=== PATIENT | female | born 2000 | race African-American/Black ===

== ENCOUNTER 2023-06-21 02:07 | Emergency (ER) | payer BC, SELFPAY ==
[2023-06-21 02:16] VITALS: BP 132/94
[2023-06-21 02:58] LABS: % Basophils 0.8 % (0-2); % Eosinophils 5.2 % (0-6); % Immature Granulocytes 0.3 % (0-0.5); % Lymphocytes 28.8 % (20.5-51.1); % Monocytes 15.9 % (1.7-9.3); Absolute Basophils 0.1 10^3/uL (0-0.2); Absolute Eosinophils 0.3 10^3/uL (0-0.7); Absolute Lymphocytes 1.7 10^3/uL (1.2-3.4); Absolute Monocytes 0.9 10^3/uL (0.1-0.6); Absolute Neutrophils 2.9 10^3/uL (1.4-6.5); Hematocrit 38.5 % (37.0-47.0); Hemoglobin 12.8 g/dL (12.0-16.0); Mean Corp Hgb Conc. 33.2 g/dL (33.0-37.0); Mean Corpuscular Hgb 28.2 pg (27.0-31.0); Mean Corpuscular Volume 84.8 fL (81.0-99.0); Mean Platelet Volume 9.3 fL (7.4-10.4); Nucleated Red Blood Cells % 0 %; Platelet Count 249 10^3/uL (130-400); Red Blood Cell Count 4.54 10^6/uL (4.20-5.40); Red Cell Dist. Width 13.2 % (11.5-14.5); White Blood Cell Count 5.9 10^3/uL (4.8-10.8)
--- NOTE | 2023-06-21 03:12 | ED.GENMED ---
History of Present Illness
<PRO Quiroz - Last Filed: 06/22/23 17:53>
General
Chief Complaint: Abdominal Pain
Source: patient
Exam Limitations: none
Time Seen by Provider: 06/21/23 02:50
Travel History
Have you had any contact with someone who has COVID-19?: No
Do you have any symptoms of coronavirus? Fever > 100 degrees, chills, cough, shortness of breath, sore throat, loss of taste or smell, muscle aches, or headache?: No
History of Present Illness
History of Present Illness:
This is a 23 year old female that comes in with c/o left lower abd pain. States that she started with back and left sided abd pain. States that she took Tylenol 1000mg and the pain was not going away. States that she is also concerned that her IUD
is displaced. States that she went to bed and she was awakened with pain on the left side. States that the pain started at 7pm. States that she was nauseated. Denies any fever, chills, chest pain, SOB, vomiting, diarrhea, headache, dizziness,
urinary burning.
Past History
<PRO Quiroz - Last Filed: 06/22/23 17:53>
Past History
ED Past Medical History: None; Negative Asthma, HTN, Hypercholesterolemia or NIDDM
ED Past Surgical History: Orthopedic (Right ankle surgery)
Social History
Tobacco: Non-smoker
Alcohol: Occasional
Personal: Single
Living: alone
Review of Systems
<PRO Quiroz - Last Filed: 06/22/23 17:53>
Review of Systems
All Other Systems: ROS reviewed and negative except as documented in HPI and ROS
Constitutional: Reports no symptoms; Denies fever or chills
EENT: Reports no symptoms
Respiratory: Reports no symptoms; Denies cough or trouble breathing
Cardiac: Reports no symptoms; Denies chest pain
ABD/GI: Reports abdominal pain and nausea; Denies vomiting or diarrhea
: Reports no symptoms; Denies dysuria, frequency or urgency
Musculoskeletal: Reports no symptoms
Skin: Reports no symptoms
Neurological: Reports no symptoms; Denies dizzy or headache
Psychiatric: Reports no symptoms
Phy Exam
<PRO Quiroz - Last Filed: 06/22/23 17:53>
General Physical Exam
General Presentation: no apparent distress
General age: appears stated age
General Skin: warm and dry
General Habitus: normal
General Mental: alert
General Hydration: appears well hydrated
ENT Exam
ENT Exam: TM's normal, pharynx normal and neck supple
Eye Exam
Eye Exam: EOMI
Cardiovascular Exam
Cardiovascular Exam: regular rate/rhythm, no edema, no murmur and normal peripheral pulses
Pulmonary Exam
Pulmonary Exam: lungs clear, no respiratory distress, no rales, chest non tender, no crackles, no rhonchi, no wheezing and no cough
Gastrointestinal Exam
Gastrointestinal Exam: normal bowel sounds, soft, no organomegaly, no pulsatile mass, non distended, no cva tenderness and tender (Very slight Left lower abd tenderness with palpation)
Musculoskeletal Exam
Musculoskeletal Exam: full ROM and no edema
Skin Exam
Skin Exam: normal color, warm/dry, no rash and no petechia
Course
<PRO Quiroz - Last Filed: 06/22/23 17:53>
Orders/Labs/Results
Orders:
Orders
06/21/23 02:27
Test Result ONCE
06/21/23 02:40
Complete Blood Count/With Diff Urgent
Comprehensive Metabolic Panel Urgent
HCG, Serum Qualitative Screen Urgent
Lipase Urgent
06/21/23 03:11
CT Abd/pelvis W Iv Cont Urgent
Reason For Exam: :eft lower abd pain
0.9% Sodium Chloride 1000 ml [Nss] 1,000 ml IV BOLUS
Ketorolac [Toradol] 30 mg IV NOW STA
06/21/23 03:12
Urinalysis Reflex To Culture Urgent
Date Specimen was Collected: 06/21/23
Time Specimen was Collected: 02:27
Urine Microscopic Reflex Cult Urgent
Abnormal Lab Results
06/21/23 06/21/23
02:40 03:12
Absolute Monos (auto) 0.9 H 10^3/uL
(0.1-0.6)
Monocytes % 15.9 H %
(1.7-9.3)
BUN 19 H mg/dl
(7-17)
Leukocyte Esterase Rfl Trace A
(Negative)
06/21/23 02:40
06/21/23 02:40
Vital Signs
Initial and Last Documented VS:
Initial Vital Signs
Temp Pulse Resp BP Pulse Ox
98.2 F 82 18 132/94 100
06/21/23 02:16 06/21/23 02:16 06/21/23 02:16 06/21/23 02:16 06/21/23 02:16
Last Documented Vital Signs
Temp Pulse Resp BP Pulse Ox
98.2 F 75 18 151/94 100
06/21/23 02:16 06/21/23 05:19 06/21/23 05:19 06/21/23 05:19 06/21/23 05:19
<Lashonda Meeks, DO - Last Filed: 06/21/23 05:18>
Orders/Labs/Results
Orders:
Orders
06/21/23 02:27
Test Result ONCE
06/21/23 02:40
Complete Blood Count/With Diff Urgent
Comprehensive Metabolic Panel Urgent
HCG, Serum Qualitative Screen Urgent
Lipase Urgent
06/21/23 03:11
CT Abd/pelvis W Iv Cont Urgent
Reason For Exam: :eft lower abd pain
0.9% Sodium Chloride 1000 ml [Nss] 1,000 ml IV BOLUS
Ketorolac [Toradol] 30 mg IV NOW STA
06/21/23 03:12
Urinalysis Reflex To Culture Urgent
Date Specimen was Collected: 06/21/23
Time Specimen was Collected: 02:27
Urine Microscopic Reflex Cult Urgent
Abnormal Lab Results
06/21/23 06/21/23
02:40 03:12
Absolute Monos (auto) 0.9 H 10^3/uL
(0.1-0.6)
Monocytes % 15.9 H %
(1.7-9.3)
BUN 19 H mg/dl
(7-17)
Leukocyte Esterase Rfl Trace A
(Negative)
06/21/23 02:40
06/21/23 02:40
Vital Signs
Initial and Last Documented VS:
Initial Vital Signs
Temp Pulse Resp BP Pulse Ox
98.2 F 82 18 132/94 100
06/21/23 02:16 06/21/23 02:16 06/21/23 02:16 06/21/23 02:16 06/21/23 02:16
Last Documented Vital Signs
Temp Pulse Resp BP Pulse Ox
98.2 F 75 18 151/94 100
06/21/23 02:16 06/21/23 05:19 06/21/23 05:19 06/21/23 05:19 06/21/23 05:19
Calelt;PRO Quiroz - Last Filed: 06/22/23 17:53>
MDM/Problems Addressed
Differential Diagnosis Includes:
Ovarian cyst, renal calculus,
MDM/Problems Addressed:
This is a 23 year old female that comes in with c/o left lower abd pain. States that she started about 7pm with pain in the back and left lower abd. States that the pain in the back is better but she still has left lower abd discomfort. State that
she was nauseated and Took Tylenol 1000mg with out any relief. Patient is also concerned about her IUD not being in place.
Chronic conditions affecting care:
NA
Acute Exacerbation and/or Progression of Chronic Illness:
NA
<PRO Quiroz - Last Filed: 06/22/23 17:53>
*Pulse Oximetry
Patient hypoxic: no
*EKG
Interpreted by ED Provider?: NA
Rate: EKG- N/A
*Enter[employer] Analyst Interpretation
Rate: Enterprise Analyst- N/A
*Critical Care Note
Total Time (30-74mins, 75-104mins- exclusive of procedures): Not Applicable
<Lashonda Meeks DO - Last Filed: 06/21/23 05:18>
*Radiology
Radiology exam reviewed: radiology read reviewed
ED Attending Note
<PRO Quiroz - Last Filed: 06/22/23 17:53>
-
Portions of this chart may have been created with voice recognition software.� Occasional wrong word or��sound alike� substitutions may have occurred due to the inherent limitations of voice recognition software.
<Lashonda Meeks DO - Last Filed: 06/21/23 05:18>
ED Attending Note
Patient seen and examined by attending physician: Yes
I performed the substantive portion of visit, reviewed & personally made and approve the management plan that is documented in note by myself or GARLAND.: Yes
I performed a history and physical exam of patient and discussed management with resident, I reviewed resident's note and agree with documented findings and plan of care.: Yes
ED Attending Note:
Patient presents with acute onset of left lower quadrant pain radiating to her left back which began around 7 PM. Pain is markedly improved, they are resolved. No history of similar episodes in the past.
She has Kyleena IUD in place�inserted 5 years ago. Generally does not get her menses.
Abdomen is soft with only minimal tenderness left lower quadrant with deep palpation only, no rebound or guarding.
Labs are unremarkable as is urinalysis.
CAT scan shows 4.5 cm left ovarian cyst, otherwise unremarkable. No free fluid nor free air.
IUD in place.
I suspect left-sided pain is ovarian cyst in nature. Overall patient appears quite comfortable and exam is reassuring.
Recommend NSAID as needed for pain, local heat and prompt follow-up with [employer] for recheck.
Return precautions discussed.
Discharge Plan
Departure
Patient Disposition: Home (Routine Discharge)
Date of Disposition: 06/21/23
Time of Disposition: 05:17
Patient with high blood pressure during this ER visit?: No
Condition: Good
Discharge Problem:
Cyst of left ovary, Acute abdominal pain in left lower quadrant
Instructions: Ovarian Cyst (DC)
Referrals:
Lola Dewitt DO [Family Provider] - Call in 1-3 days for appt
Interventions
Interventions:
*Risk Screen - Suicide Last Done: 06/21/23 02:16
*General Assessment Last Done: 06/21/23 04:16
*Neglect/Abuse Screening Last Done: 06/21/23 02:16
ED- Fall Risk Assessment Last Done: 06/21/23 04:16
*ED COVID-19 Vaccine History Last Done: 06/21/23 04:16
*Nursing Disposition Last Done: 06/21/23 05:22
QS-Ekljjk-Wlahwawcqv Assessment Last Done: 06/21/23 02:40
Discharge Date and Time
Discharge Date/Time: 06/21/23 05:22
Print Language: PASHTO
[2023-06-21] MEDS: NSS 1000 IV (03:19)
[2023-06-21] MEDS: TORADOL 30 MG IV (03:20)
[2023-06-21 03:21] LABS: Urine Albumin Negative (Neg - Trace); Urine Bilirubin Negative (Negative); Urine Character Clear (Clear); Urine Color Yellow; Urine Glucose Negative (Negative); Urine Ketone Negative (Negative); Urine Leukocyte Trace (Negative); Urine Nitrite Negative (Negative); Urine Occult Blood Negative (Negative); Urine Urobilinogen Negative (Neg - 1+)
[2023-06-21 03:29] LABS: Urine Red Blood Cell None Seen /HPF (0-2); Urine Squamous Cell 0-2 /LPF (Few)
[2023-06-21 03:36] LABS: HCG, Serum Qualitative Screen Negative
[2023-06-21 03:43] LABS: ALT (SGPT) 15 U/L (0-35); AST (SGOT) 21 U/L (14-36); Albumin 3.9 g/dl (3.5-5.0); Alkaline Phosphatase 63 U/L (38-126); Blood Urea Nitrogen 19 mg/dl (7-17); Calcium 9.1 mg/dl (8.4-10.2); Carbon Dioxide 24 mmol/L (22-30); Chloride 106 mmol/L (98-107); Glucose 82 mg/dl (70-99); Lipase 132 U/L (23-300); Potassium 4.2 mmol/L (3.5-5.1); Sodium 136 mmol/L (135-145); Total Bilirubin 0.2 mg/dl (0.2-1.3); Total Protein 6.6 g/dl (6.3-8.2); eGFR > 60.00
[2023-06-21 05:19] VITALS: BP 151/94
== END 2023-06-21 05:22 | disposition home or self-care (01) ==
LOC: EMR 02:07
PROVIDERS: EMERGENCY PHYSICIAN Emergency Medicine; FAMILY PHYSICIAN Family Medicine
DX: N83.202 Unspecified ovarian cyst, left side (principal); R10.32 Left lower quadrant pain
CPT/HCPCS: 99285; 96374; 96361; 74177; 80053; 81003; 81015; 83690; 84703; 85025; Q9967